=== PATIENT | male | born 1985 | race Caucasian/White ===

== ENCOUNTER → 2020-12-05 16:39 | Outpatient (CLI) | payer OTHER, SELFPAY ==
--- NOTE | 2020-12-05 16:44 | DI.RAD.S_ITS ---
PROCEDURE: XR FINGER LT MIN 2V INDICATIONS: injury of left 4rth finger TECHNIQUE: AP hand, 2 views of the 4th finger(s) acquired. COMPARISON: None. FINDINGS: Bones: Possible volar plate fracture involving the base of the 4th distal phalanx seen only on the lateral view where there is mild linear lucency extending through the volar aspect of the base. Soft tissues: No suspicious soft tissue calcifications. IMPRESSION: Possible volar plate fracture involving the 4th distal phalangeal base. Recommend correlation to point tenderness. Dictated by: Leoncio Kiser [facility] Interpreted: Tommy Walter MD on 12/05/2020 at 16:56 Transcribed by: RICK on 12/05/2020 at 16:58 Approved by: Tommy Walter M.D. on 12/05/2020 at 17:01
[2020-12-05 18:04] LABS: Hematocrit 39.6 % (41-53); Hemoglobin 13.9 g/dL (13.5-17.5); Mean Corpuscular HGB Conc 35.2 % (30-36); Mean Corpuscular Hemoglobin 31.7 PG (26-34); Mean Corpuscular Volume 90.1 fL (80-100); Platelet Count 199 X10^3/uL (150-400); Red Blood Cell Count 4.39 X10^6/uL (4.5-5.9); White Blood Cell Count 5.8 X10^3/uL (4.5-11.0)
[2020-12-05 18:24] LABS: Basophils Absolute Auto 100 /uL (0-100); Basophils Percent Auto 1.1 % (0-2); Eosinophils Absolute Auto 100 /uL (0-450); Eosinophils Percent Auto 1.7 % (2-4); Lymphocytes Absolute Auto 1600 /uL (1100-4500); Lymphocytes Percent Auto 26.4 % (25-40); Monocytes Absolute Auto 500 /uL (0-900); Monocytes Percent Auto 8.2 % (3-14); Neutrophils Absolute Auto 3700 /uL (1500-7000); Neutrophils Percent Auto 62.6 % (50-75)
[2020-12-05 18:25] LABS: Add Manual Diff / Slide Review SLIDE REVIEW
[2020-12-05 18:51] LABS: Platelet Morphology Comment NOTE; RBC Morphology Normal Morphology
[2020-12-05 19:07] LABS: Alanine Aminotransferase 19 IU/L (<50); Albumin 4.6 g/dL (3.5-5.0); Albumin Globulin Ratio 1.8 (1.0-2.8); Alkaline Phosphatase 76 U/L (38-126); Aspartate Aminotransferase 29 IU/L (17-59); BUN Creatinine Ratio 18.8 (6-22); Bilirubin Total 0.4 mg/dL (0.2-1.3); Blood Urea Nitrogen 16 mg/dL (9-20); Calcium 9.9 mg/dL (8.4-10.2); Carbon Dioxide 25 mmol/L (22-32); Chloride 106 mmol/L (98-107); Estimated Glomerular Filt Rate > 60.0 mL/min (>60); Globulin 2.5 g/dL (1.7-4.1); Glucose 87 mg/dL (70-100); HEMOLYSIS < 15 (0-50); Potassium 4.6 mmol/L (3.4-5.1); Sodium 140 mmol/L (137-145); Total Protein 7.1 g/dL (6.3-8.2)
[2020-12-05 19:08] LABS: Free T4, Direct Thyroxine 1.08 ng/dL (0.78-2.19)
[2020-12-05 19:22] LABS: Thyroid Stimulating Hormone 2.73 uIU/mL (0.47-4.68)
== END ==
PROVIDERS: PCP Registered Nurse; Referring Provider Registered Nurse; Visit Provider Registered Nurse
DX: S69.90XA Unspecified injury of unspecified wrist, hand and finger(s), initial encounter (principal); R53.83 Other fatigue
CPT/HCPCS: 36415; 73140; 80053; 84439; 84443; 85025